=== PATIENT | male | born 1955 | race Caucasian/White ===

== ENCOUNTER 2019-05-29 20:22 | Inpatient (IN) | payer MEDICARE, MEDICAID ==
[~2019-05-29] VITALS: Ht 185.4 cm; Wt 112.5 kg
--- NOTE | 2019-05-29 20:30 | NUR ---
Patient bib pvt ambulance from [facility] on a 5150 for DTO/GD. A/Ox2. Speech is clear, speaks in complete sentences. Respiratory even and unlabored no cough no sob. No signs of aggression. Denies any n/v/d. Patient in bed at lowest position, sr upx2, call light within reach. Fall precautions implemented per protocol.
[2019-05-29] MEDS ORDERED: LORA10TA7 PO (20:48)
[2019-05-29] MEDS ORDERED: QUET50TA PO (20:48)
[2019-05-29] MEDS ORDERED: QUET200T PO (20:48)
[2019-05-29] MEDS ORDERED: MAGN400O6 PO (20:48)
[2019-05-29] MEDS ORDERED: DOCU100C36 PO (20:48)
[2019-05-29] MEDS ORDERED: OXCA150T13 PO (20:48)
[2019-05-29] MEDS ORDERED: ASPI81TA31 PO (20:48)
[2019-05-29] MEDS ORDERED: DIPH25CA83 PO (20:48)
[2019-05-29] MEDS ORDERED: [UNRECOGNIZED DRUG - OTHER] TP (20:48)
[2019-05-29] MEDS ORDERED: SODI100010 PO (20:48)
[2019-05-29] MEDS ORDERED: MULT-213 PO (20:48)
[2019-05-29] MEDS ORDERED: DIAZ5TAB4 PO (20:48)
[2019-05-29 21:02] LABS: BASOPHILS # (AUTO) 0.1 K/uL (0.0-8.0); BASOPHILS % (AUTO) 1.1 % (0.0-2.0); EOSINOPHILS # (AUTO) 0.2 K/uL (0.0-0.7); EOSINOPHILS % (AUTO) 2.7 % (0.0-7.0); HEMATOCRIT 42.6 % (36.7-47.1); HEMOGLOBIN 14.1 g/dL (12.5-16.3); LYMPHOCYTES # (AUTO) 1.3 K/uL (20.0-40.0); LYMPHOCYTES % (AUTO) 19.5 % (20.5-51.5); MEAN CORPUSCULAR HEMOGLOBIN 30.5 uug (23.8-33.4); MEAN CORPUSCULAR HGB CONC 33 g/dL (32.5-36.3); MEAN CORPUSCULAR VOLUME 92.1 fL (73.0-96.2); MONOCYTES # (AUTO) 0.6 K/uL (2.0-10.0); MONOCYTES % (AUTO) 9.8 % (0.0-11.0); NEUTROPHILS # (AUTO) 4.3 K/uL (1.8-8.9); NEUTROPHILS % (AUTO) 66.9 % (38.5-71.5); PLATELET COUNT (AUTO) 181 K/uL (152-348); RED BLOOD CELL COUNT(AUTO) 4.62 MIL/uL (4.06-5.63); WHITE BLOOD COUNT (AUTO) 6.5 K/uL (3.6-10.2)
[2019-05-29 21:10] LABS: CARBON DIOXIDE 32 mmol/L (21-32); CHLORIDE 101 mmol/L (98-107); CREATININE 1.2 mg/dL (0.6-1.3); GLUCOSE 100 mg/dL (74-106); POTASSIUM 4.9 mmol/L (3.5-5.1); UREA NITROGEN, BLOOD 17 mg/dL (7-18)
[2019-05-29 21:16] LABS: ACETAMINOPHEN < 2.0 ug/mL (10-30); ALANINE AMINOTRANSFERASE 18 U/L (16-63); ALKALINE PHOSPHATASE 67 U/L (50-136); ASPARTATE AMINOTRANSFERASE 16 U/L (15-37); BILIRUBIN,DIRECT 0.1 mg/dL (0.0-0.2); BILIRUBIN,TOTAL 0.4 mg/dL (0.2-1.0); TOTAL PROTEIN, SERUM 7.8 g/dL (6.4-8.2)
[2019-05-29 21:18] LABS: ETHANOL < 3 MG/DL (0-0)
[2019-05-29 21:32] LABS: *BILIRUBIN,URIN NEGATIVE (NEGATIVE); *BLOOD, URINE NEGATIVE (NEGATIVE); *CLARITY,URINE CLEAR (CLEAR); *COLOR,URINE YELLOW (YELLOW); *KETONES,URINE NEGATIVE (NEGATIVE); *UROBILINOGEN,URINE 0.2 E.U./dl (NORMAL); LEUKOCYTE ESTERASE ,URINE NEGATIVE (NEGATIVE); NITRITE, URINE NEGATIVE (NEGATIVE); PH,URINE 7.5 (5.0-8.0); UGLUCOSE NEGATIVE (NEGATIVE)
[2019-05-29 21:43] LABS: *AMPHETAMINE, URINE NEGATIVE (NEGATIVE); *BARBITURATE, URINE NEGATIVE (NEGATIVE); *CANNABINOID, URINE NEGATIVE (NEGATIVE); *COCCAINE, URINE NEGATIVE (NEGATIVE); *OPIATE, URINE NEGATIVE (NEGATIVE); *PHENCYCLIDINE SCREEN,URINE NEGATIVE (NEGATIVE)
[2019-05-29] MEDS ORDERED: MAGNESIUM HYDROXIDE 30 ML LIQUID UDC PO PRN ×2 (22:00→22:15)
--- NOTE | 2019-05-29 22:07 | NUR ---
Patient transported to MHU in stable condition.
[2019-05-29] MEDS ORDERED: MAG HYDROX/AL HYDROX/SIMETH 30 ML LIQUID UDC PO PRN (22:15)
[2019-05-29] MEDS ORDERED: ZOLPIDEM 5 MG TABLET PO PRN (22:15)
[2019-05-29] MEDS ORDERED: ACETAMINOPHEN 325 MG TABLET PO PRN (22:15)
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
[2019-05-30 01:49] VITALS: BP 154/94
[2019-05-30 07:30] VITALS: BP 142/88
[2019-05-30 07:33] LABS: BASOPHILS % (AUTO) 0.6 % (0.0-2.0); EOSINOPHILS # (AUTO) 0.2 K/uL (0.0-0.7); EOSINOPHILS % (AUTO) 3.3 % (0.0-7.0); HEMATOCRIT 43.3 % (36.7-47.1); HEMOGLOBIN 14.8 g/dL (12.5-16.3); LYMPHOCYTES # (AUTO) 0.8 K/uL (20.0-40.0); LYMPHOCYTES % (AUTO) 14.1 % (20.5-51.5); MEAN CORPUSCULAR HEMOGLOBIN 30.5 uug (23.8-33.4); MEAN CORPUSCULAR HGB CONC 34 g/dL (32.5-36.3); MEAN CORPUSCULAR VOLUME 89.5 fL (73.0-96.2); MONOCYTES # (AUTO) 0.5 K/uL (2.0-10.0); MONOCYTES % (AUTO) 8.5 % (0.0-11.0); NEUTROPHILS # (AUTO) 4.2 K/uL (1.8-8.9); NEUTROPHILS % (AUTO) 73.5 % (38.5-71.5); PLATELET COUNT (AUTO) 193 K/uL (152-348); RED BLOOD CELL COUNT(AUTO) 4.84 MIL/uL (4.06-5.63); WHITE BLOOD COUNT (AUTO) 5.7 K/uL (3.6-10.2)
[2019-05-30 07:57] LABS: THYROID STIMULATING HORMONE 3.966 mIU/mL (0.358-3.740)
[2019-05-30 08:14] LABS: MAGNESIUM 1.7 mg/dL (1.8-2.4); PHOSPHOROUS 3.6 mg/dL (2.5-4.9); POTASSIUM 3.8 mmol/L (3.5-5.1)
[2019-05-30] MEDS: DOCUSATE SODIUM 100 MG CAPSULE PO SCH ×2 (08:55→16:22)
[2019-05-30] MEDS: MULTIVIT, IRON, MIN NO. 8, FA TABLET PO SCH (08:55)
[2019-05-30] MEDS: ASPIRIN 81 MG TAB.CHEW PO SCH (08:55)
[2019-05-30] MEDS: LORATADINE 10 MG TABLET PO SCH (08:55)
[2019-05-30] MEDS: SODIUM CHLORIDE 1,000 MG TABLET PO SCH ×2 (08:55→16:22)
[2019-05-30] MEDS ORDERED: DIAZEPAM 5 MG TABLET PO SCH (09:00)
[2019-05-30] MEDS ORDERED: Medication Not On Formulary EA (Multivitamins W-Minerals (Multivitamin With Minerals) 1 PO SCH (09:00)
[2019-05-30] MEDS: QUETIAPINE FUMARATE 25 MG TABLET PO SCH ×4 (10:05→20:41)
[2019-05-30] MEDS: DIVALPROEX ER 250 MG TAB.SR.24H PO SCH ×2 (10:05→20:40)
[2019-05-30] MEDS: DIAZEPAM 5 MG TABLET PO SCH ×2 (10:18→21:10)
[2019-05-30] MEDS ORDERED: FUROSEMIDE 40 MG TABLET PO ONE (13:00)
[2019-05-30] MEDS ORDERED: MAGNESIUM OXIDE 400 MG TABLET PO ONE (13:00)
[2019-05-30 15:16] VITALS: BP 120/80
--- NOTE | 2019-05-30 15:41 | NUR ---
Initial Discharge Note: Patient is a 64 year old male who currently resides at [facility] [[id number] [facility], [place] [address] ]. Per daughter Felecia [[phone]], she would like her father to return to facility upon discharge. Per MERLIN Ruiz at facility, patient will be welcomed back at facility upon discharge. warp worker will continue to meet with patient, and collaborate with patient, family, and MD on a safe and proper discharge plan.
--- NOTE | 2019-05-30 17:04 | NUR ---
pGPS: patient aox2-3, compliant with medication , calm and cooperative however, isolative and withdrawn
[2019-05-30 19:52] VITALS: BP 129/91
--- NOTE | 2019-05-31 05:57 | NUR ---
Patient slept well total of 7 hours. No complaints made. No other untoward events noted.
[2019-05-31 07:58] VITALS: BP 143/91
[2019-05-31] MEDS: DOCUSATE SODIUM 100 MG CAPSULE PO SCH ×2 (09:25→17:26)
[2019-05-31] MEDS: MULTIVIT, IRON, MIN NO. 8, FA TABLET PO SCH (09:26)
[2019-05-31] MEDS: DIVALPROEX ER 250 MG TAB.SR.24H PO SCH ×2 (09:26→20:37)
[2019-05-31] MEDS: ASPIRIN 81 MG TAB.CHEW PO SCH (09:26)
[2019-05-31] MEDS: DIAZEPAM 5 MG TABLET PO SCH ×2 (09:28→20:38)
[2019-05-31] MEDS: QUETIAPINE FUMARATE 25 MG TABLET PO SCH ×4 (09:28→20:37)
[2019-05-31] MEDS: SODIUM CHLORIDE 1,000 MG TABLET PO SCH ×2 (09:29→17:26)
[2019-05-31] MEDS: LORATADINE 10 MG TABLET PO SCH (09:30)
[2019-05-31 16:21] VITALS: BP 128/81
[2019-05-31 20:41] VITALS: BP 136/88
--- NOTE | 2019-05-31 22:00 | NUR ---
received to care, lying in bed, pleasant , upon approach. compliant with medications and staff direction. as of 2199, he remains asleep. no distress noted. will continue to monitor closely.
[2019-06-01 07:30] VITALS: BP 159/95
[2019-06-01] MEDS: SODIUM CHLORIDE 1,000 MG TABLET PO SCH ×2 (08:12→16:44)
[2019-06-01] MEDS: QUETIAPINE FUMARATE 25 MG TABLET PO SCH ×4 (08:12→21:49)
[2019-06-01] MEDS: DOCUSATE SODIUM 100 MG CAPSULE PO SCH ×2 (08:12→16:44)
[2019-06-01] MEDS: MULTIVIT, IRON, MIN NO. 8, FA TABLET PO SCH (08:12)
[2019-06-01] MEDS: DIVALPROEX ER 250 MG TAB.SR.24H PO SCH ×2 (08:12→21:48)
[2019-06-01] MEDS: ASPIRIN 81 MG TAB.CHEW PO SCH (08:12)
[2019-06-01] MEDS: LORATADINE 10 MG TABLET PO SCH (08:12)
[2019-06-01] MEDS: DIAZEPAM 5 MG TABLET PO SCH ×2 (08:12→21:48)
[2019-06-01 16:46] VITALS: BP 111/70
[2019-06-01 20:29] VITALS: BP 143/80
[2019-06-02 07:30] VITALS: BP 131/48
[2019-06-02] MEDS: DIVALPROEX ER 250 MG TAB.SR.24H PO SCH ×2 (08:11→21:00)
[2019-06-02] MEDS: LORATADINE 10 MG TABLET PO SCH (08:11)
[2019-06-02] MEDS: DOCUSATE SODIUM 100 MG CAPSULE PO SCH ×2 (08:11→17:34)
[2019-06-02] MEDS: DIAZEPAM 5 MG TABLET PO SCH ×2 (08:12→21:00)
[2019-06-02] MEDS: ASPIRIN 81 MG TAB.CHEW PO SCH (08:12)
[2019-06-02] MEDS: MULTIVIT, IRON, MIN NO. 8, FA TABLET PO SCH (08:12)
[2019-06-02] MEDS: QUETIAPINE FUMARATE 25 MG TABLET PO SCH ×4 (08:12→21:00)
--- NOTE | 2019-06-02 08:30 | NUR ---
RECIEVED PT LYING IN BED, VERY PLEASANT AND IN GOOD SPIRIT. ATE BREAKFAST WELL AND TOOK HIS MEDICATIONS WELL. DENIES OF ANY DISCOMFORT AT THIS TIME. PT ENCOURAGED TO JOIN THE GROUP IN THE DINING ROOM BUT HE REFUSED. AMBULATINGTO BATHROOM WITHOUT ANY PROBLEM.
[2019-06-02] MEDS: SODIUM CHLORIDE 1,000 MG TABLET PO SCH ×2 (09:43→17:35)
[2019-06-02 20:00] VITALS: BP 122/74
--- NOTE | 2019-06-02 20:00 | NUR ---
RECEIVED PATIENT IN HIS ROOM IN BED ASLEEP BUT EASILY AROUSABLE. PATIENT NOTED A/O X 1 CALM AND PLEASANT UPON APPROACHED. NO AGGRESSIVE/COMBATIVE BX NOTED AT THIS TIME. PT IS REASSURED FOR HIS SAFETY. SAFETY AND FALL PRECAUTION IN PLACE. V/S STABLE AT THIS TIME. WILL CONTINUE TO MONITOR.
[2019-06-03 07:30] VITALS: BP 138/94
[2019-06-03 08:48] LABS: CREATININE 1.1 mg/dL (0.6-1.3)
[2019-06-03] MEDS: ASPIRIN 81 MG TAB.CHEW PO SCH (08:50)
[2019-06-03] MEDS: LORATADINE 10 MG TABLET PO SCH (08:50)
[2019-06-03] MEDS: DIVALPROEX ER 250 MG TAB.SR.24H PO SCH ×2 (08:50→20:19)
[2019-06-03] MEDS: DOCUSATE SODIUM 100 MG CAPSULE PO SCH ×2 (08:50→16:11)
[2019-06-03] MEDS: QUETIAPINE FUMARATE 25 MG TABLET PO SCH ×4 (08:51→20:18)
[2019-06-03] MEDS: MULTIVIT, IRON, MIN NO. 8, FA TABLET PO SCH (08:51)
[2019-06-03] MEDS: DIAZEPAM 5 MG TABLET PO SCH ×2 (08:51→20:19)
[2019-06-03] MEDS: SODIUM CHLORIDE 1,000 MG TABLET PO SCH ×2 (09:05→16:11)
--- NOTE | 2019-06-03 09:30 | NUR ---
Received pt. lying in bed, A/OX1-2. Pleasant and cooperative to nursing staff. Pt. denies SI/HI. No aggressive behavior. Able to make his needs known. In no acute distress, RA and tolerating well. Unsteady when ambulating. Safety and fall precaution in placed. All due medications administered as ordered with no ASE. Will continue to monitor.
[2019-06-03 15:03] VITALS: BP 123/95
--- NOTE | 2019-06-03 18:48 | NUR ---
No significant change during this shift. Remain compliant with nursing care and medications regimen. Encouraged pt. to participate with group but prefers to stay in bed. Safety measures and fall precaution in place. Will endorse to oncoming shift accordingly.
[2019-06-03 20:12] VITALS: BP 128/77
[2019-06-04 07:30] VITALS: BP 131/48
[2019-06-04] MEDS: QUETIAPINE FUMARATE 25 MG TABLET PO SCH ×4 (08:27→20:26)
[2019-06-04] MEDS: ASPIRIN 81 MG TAB.CHEW PO SCH (08:27)
[2019-06-04] MEDS: DOCUSATE SODIUM 100 MG CAPSULE PO SCH ×2 (08:27→16:38)
[2019-06-04] MEDS: LORATADINE 10 MG TABLET PO SCH (08:27)
[2019-06-04] MEDS: DIVALPROEX ER 250 MG TAB.SR.24H PO SCH (08:27)
[2019-06-04] MEDS: MULTIVIT, IRON, MIN NO. 8, FA TABLET PO SCH (08:28)
[2019-06-04] MEDS: DIAZEPAM 5 MG TABLET PO SCH ×2 (08:28→20:26)
[2019-06-04] MEDS: SODIUM CHLORIDE 1,000 MG TABLET PO SCH ×2 (08:30→16:39)
[2019-06-04] MEDS ORDERED: DIVALPROEX ER 250 MG TAB.SR.24H PO SCH (09:00)
[2019-06-04] MEDS ORDERED: DIAZEPAM 5 MG TABLET PO SCH (09:00)
[2019-06-04] MEDS ORDERED: DIVALPROEX 250 MG TABLET.DR PO SCH (09:15)
[2019-06-04] MEDS: DIVALPROEX 250 MG TABLET.DR PO SCH ×2 (13:00→16:38)
[2019-06-04 16:09] VITALS: BP 124/83
[2019-06-04 20:22] VITALS: BP 133/86
[2019-06-05 07:30] VITALS: BP 131/97
[2019-06-05] MEDS: MULTIVIT, IRON, MIN NO. 8, FA TABLET PO SCH (08:33)
[2019-06-05] MEDS: DIAZEPAM 5 MG TABLET PO SCH ×2 (08:33→20:48)
[2019-06-05] MEDS: DOCUSATE SODIUM 100 MG CAPSULE PO SCH ×2 (08:33→16:21)
[2019-06-05] MEDS: LORATADINE 10 MG TABLET PO SCH (08:33)
[2019-06-05] MEDS: ASPIRIN 81 MG TAB.CHEW PO SCH (08:33)
[2019-06-05] MEDS: QUETIAPINE FUMARATE 25 MG TABLET PO SCH ×4 (08:33→20:47)
[2019-06-05] MEDS: DIVALPROEX 250 MG TABLET.DR PO SCH ×3 (08:33→16:21)
[2019-06-05] MEDS: SODIUM CHLORIDE 1,000 MG TABLET PO SCH ×2 (08:36→17:14)
--- NOTE | 2019-06-05 08:47 | NUR ---
FIREARMS REPORT: Forge Operator Helper completed and submitted a [employer] firearms report for 5150 DTS certification. A copy of report has been placed in patient chart.
[2019-06-05 15:17] VITALS: BP 119/79
--- NOTE | 2019-06-05 18:11 | NUR ---
GPS; PATIENT AOX1, COMPLIANT WITH MEDICATION, ISOLATIVE AND WITHDRAWN, PATIENT CALM AND COOPERATIVE, DENIES SUICIDAL AND HOMICIDAL THOUGHTS, PATIENT IN NO DISTRESS TODAY
[2019-06-05 20:00] VITALS: BP 121/71
--- NOTE | 2019-06-06 06:00 | NUR ---
slept 6 hours total.
[2019-06-06 07:53] VITALS: BP 153/97
[2019-06-06] MEDS: DOCUSATE SODIUM 100 MG CAPSULE PO SCH ×2 (09:00→16:04)
[2019-06-06] MEDS: QUETIAPINE FUMARATE 25 MG TABLET PO SCH ×4 (09:00→21:27)
[2019-06-06] MEDS: DIVALPROEX 250 MG TABLET.DR PO SCH ×3 (09:00→16:04)
[2019-06-06] MEDS: MULTIVIT, IRON, MIN NO. 8, FA TABLET PO SCH (09:00)
[2019-06-06] MEDS: LORATADINE 10 MG TABLET PO SCH (09:01)
[2019-06-06] MEDS: ASPIRIN 81 MG TAB.CHEW PO SCH (09:01)
[2019-06-06] MEDS: SODIUM CHLORIDE 1,000 MG TABLET PO SCH ×2 (09:02→16:04)
[2019-06-06 16:35] VITALS: BP 139/106
[2019-06-06] MEDS: LORAZEPAM 1 MG TABLET PO PRN (20:17)
[2019-06-06 20:20] VITALS: BP 141/92
--- NOTE | 2019-06-06 22:00 | NUR ---
received to care, anxious, pacing intermittently, but pleasant upon approach. PRN ativan was given at 2016, for anxiety, which was effective, in calming him down. he remains compliant with medications and staff direction. as of 2199, he appears to be asleep. no distress noted. will continue to monitor closely.
--- NOTE | 2019-06-07 06:00 | NUR ---
slept 9 hours, total. assisted with AM care, and shower. currently lying back in bed. no distress noted.
[2019-06-07 07:30] VITALS: BP 155/94
[2019-06-07] MEDS: DIVALPROEX 250 MG TABLET.DR PO SCH ×2 (08:59→12:46)
[2019-06-07] MEDS: DOCUSATE SODIUM 100 MG CAPSULE PO SCH (08:59)
[2019-06-07] MEDS: ASPIRIN 81 MG TAB.CHEW PO SCH (08:59)
[2019-06-07] MEDS: QUETIAPINE FUMARATE 25 MG TABLET PO SCH ×2 (08:59→12:46)
[2019-06-07] MEDS: MULTIVIT, IRON, MIN NO. 8, FA TABLET PO SCH (08:59)
[2019-06-07] MEDS: LORATADINE 10 MG TABLET PO SCH (09:00)
[2019-06-07] MEDS: SODIUM CHLORIDE 1,000 MG TABLET PO SCH (09:00)
--- NOTE | 2019-06-07 10:00 | NUR ---
Pt received this morning, resting in bed. Pt AAOx1-2, forgetful. No acute distress noted. VSS, Pt compliant with medication administration. Assisted to ambulate to restroom, voiding x1, and back to bed. Pt denies pain, SI/HI, and able to CFS at this time. Plan of care discussed, including anticipated D/C later this afternoon. All comfort and safety measures implemented. Pt able to make needs known. Will continue to monitor and follow up.
[2019-06-07] MEDS: LORAZEPAM 1 MG TABLET PO PRN (10:15)
--- NOTE | 2019-06-07 14:20 | NUR ---
Pt seen by MD, discharge orders received, paperwork completed. Pt unable to sign, dual nurse signatures obtained. VS stable. Report called to Mary L[facility] at [facility]. Pt is AAOx1-2 with some confusion , but able to make needs known and CFS. Pt denies SI/I and AH/VH. Skin in intact. Daughter Felecia is aware of plan of care to discharge today. Plan reviewed with Pt to follow up with Dr. Aranda, Psychiatrist, and Dr. Busch, Circus Performer at the facility. All D/C concerns addressed. Additional mental health resources have been provided to Pt including [facility] Crisis line and National Suicide Prevention Lifeline. Report give to FLORIST'S DECORATOR, belongings returned, and Pt safety assisted to [facility] and safely escorted out of hospital. Will remove Pt from computer system shortly.
== END 2019-06-07 12:40 | DRG 885 ==
LOC: ER 20:24 → GPS 21:53
PROVIDERS: ADMIT Psychiatry & Neurology Psychiatry; ATTEND Nurse Practitioner Acute Care
DX: F39 Unspecified mood [affective] disorder (principal); N18.9 Chronic kidney disease, unspecified; F10.27 Alcohol dependence with alcohol-induced persisting dementia; J81.1 Chronic pulmonary edema; Y90.0 Blood alcohol level of less than 20 mg/100 ml; G40.909 Epilepsy, unspecified, not intractable, without status epilepticus; F41.9 Anxiety disorder, unspecified; D63.8 Anemia in other chronic diseases classified elsewhere; E78.5 Hyperlipidemia, unspecified; E83.42 Hypomagnesemia; E66.9 Obesity, unspecified; Z68.33 Body mass index [BMI] 33.0-33.9, adult; Z79.899 Other long term (current) drug therapy; I49.49 Other premature depolarization; I12.9 Hypertensive chronic kidney disease with stage 1 through stage 4 chronic kidney disease, or unspecified chronic kidney disease
CPT/HCPCS: 36415; 70030-TC; 70450; 71045; 80164; 80307; 83735; 84100; 84443; 85025; 93005; A4663; G0480; G0480-TC; J3490